=== PATIENT | female | born 1975 | race Hispanic/Latino ===

== ENCOUNTER 2018-11-03 19:31 | Emergency (ER) | payer BC ==
[2018-11-03] MEDS ORDERED: SODIUM CHLORIDE 0.9% 1000ML 1,000 ML IV ONE ×2 (19:49→20:02)
[2018-11-03] MEDS ORDERED: MORPHINE SULFATE 2 MG/ML 1ML SYG ONE (20:01)
[2018-11-03] MEDS ORDERED: ONDANSETRON HCL 4 MG/2 ML VIAL ONE (20:01)
[2018-11-03 20:16] LABS: POTASSIUM 3.9 mmol/L (3.5-5.1)
[2018-11-03 20:19] LABS: OCCULT BLOOD STOOL SINGLE ONLY POSITIVE (NEGATIVE)
[2018-11-03 20:20] LABS: BILIRUBIN,DIRECT 0.1 mg/dL (0.0-0.3); BILIRUBIN,TOTAL 0.5 mg/dL (0.2-1.0); TOTAL PROTEIN, SERUM 8.4 g/dL (6.0-8.3)
[2018-11-03] MEDS ORDERED: IOHEXOL-350 75 ML VIAL IV ONE (20:21)
[2018-11-03 20:33] LABS: BASOPHILS % (AUTO) 0.6 % (0.0-5.0); EOSINOPHILS % (AUTO) 1.5 % (0.0-8.0); HEMATOCRIT 36.9 % (36-48); LYMPHOCYTES % (AUTO) 23.9 % (21.0-51.0); MEAN CORPUSCULAR HEMOGLOBIN 26.7 pg (27.0-33.0); MEAN CORPUSCULAR HGB CONC 33.7 g/dL (32.0-36.0); MEAN CORPUSCULAR VOLUME 79.2 fL (79-99); MONOCYTES % (AUTO) 8.3 % (3.0-13.0); NEUTROPHILS % (AUTO) 65.7 % (40.0-77.0); PLATELET COUNT (AUTO) 209 K/uL (130-400); RED BLOOD CELL COUNT(AUTO) 4.66 MIL/uL (4.00-5.50); RED CELL DISTRIBUTION WIDTH 15.8 % (11.0-15.5); WHITE BLOOD COUNT (AUTO) 8.1 K/uL (4.8-10.8)
== END 2018-11-03 22:32 | disposition home or self-care (01) ==
LOC: EDH 19:31
DX: A09 Infectious gastroenteritis and colitis, unspecified (principal); R10.814 Left lower quadrant abdominal tenderness
CPT/HCPCS: 36415; 74177; 80048; 80076; 81025; 82270; 85025; 86708; 87046; 87324; 96361; 96374; 96375; 99285; J2405; J7030 ×2; Q9967

== ENCOUNTER 2018-12-24 19:52 | Emergency (ER) | payer BC ==
[2018-12-24] MEDS ORDERED: ACETAMINOPHEN EXTRA STRENGTH 500 MG TABLET ONE (20:05)
[2018-12-24 20:30] LABS: RAPID GROUP A STREP NEGATIVE (NEGATIVE)
[2018-12-24] MEDS ORDERED: IPRATROPIUM/ALBUTEROL SULFATE 3 ML SOLUTION IH ONE (20:33)
== END 2018-12-24 21:26 | disposition home or self-care (01) ==
LOC: EDH 19:52
DX: J06.9 Acute upper respiratory infection, unspecified (principal); Z98.51 Tubal ligation status; Z98.890 Other specified postprocedural states
CPT/HCPCS: 81025; 87804; 87880; 94640

== ENCOUNTER 2022-01-05 01:40 | Emergency (ER) | payer BC ==
[~2022-01-05] VITALS: Ht 157.5 cm; Wt 126.1 kg
[2022-01-05 02:05] VITALS: BP 182/121
[2022-01-05] MEDS ORDERED: GABAPENTIN 300 MG CAPSULE PO SCH (02:30)
[2022-01-05] MEDS ORDERED: MORPHINE 4 MG SYG IM ONE (02:30)
[2022-01-05] MEDS ORDERED: DEXAMETHASONE SOD PHOSPHATE 4 MG/ML 1ML VIAL IVP ONE (02:30)
[2022-01-05] MEDS ORDERED: METH4TAB3 PO (02:59)
== END 2022-01-05 03:09 | disposition home or self-care (01) ==
LOC: EDH 01:40
DX: M54.41 Lumbago with sciatica, right side (principal); F41.9 Anxiety disorder, unspecified; I10 Essential (primary) hypertension; Z98.890 Other specified postprocedural states
CPT/HCPCS: 99284; 96374; 96372; J1100; J2270